=== PATIENT | male | born 1990 | race Hispanic/Latino ===

== ENCOUNTER → 2020-05-06 | Outpatient (CLI) | payer OTHER ==
--- NOTE | 2020-05-06 10:46 | Diagnostic Imaging Report ---
TECHNIQUE: Magnetic resonance imaging of the RIGHT KNEE was performed WITHOUT injected contrast. HISTORY: Right knee pain, right knee sprain COMPARISON: None available. FINDINGS: LIGAMENTS AND TENDONS: ACL: Increased signal with questionable fiber irregularity near the femoral attachment, may represent sprain versus low-grade partial tear. PCL: Intact Collateral ligaments: Intact Iliotibial band: Unremarkable Popliteal tendon: Intact Extensor mechanism: Intact Mild increased signal along the semimembranosus myotendinous junction. Distal tendon remains intact. JOINT: Menisci: Medial: Bucket-handle tear of the medial meniscus with large fragment flipped into the intercondylar notch. Lateral: Intact Articular Cartilage: Medial Compartment: No focal defect. Lateral Compartment: No focal defect. Patellofemoral Compartment: No focal defect. Joint Fluid: Moderate joint effusion. BONE: No focal or infiltrative bone marrow replacing abnormality. No acute fracture. SOFT TISSUES: Mild diffuse subcutaneous edema. IMPRESSION: 1. Bucket-handle tear of the medial meniscus with large fragment flipped into the intercondylar notch. 2. Increased signal in the ACL with questionable fiber irregularity near the femoral attachment, may represent ACL sprain versus low-grade partial tear. 3. Low-grade strain at the semitendinosus myotendinous junction. 4. Moderate joint effusion. Signed by: Dr. Aly Bowling M.D. on 05/06/2020 10:43 AM
== END ==
LOC: MRI 08:26
PROVIDERS: ATTEND Family Medicine
DX: S83.91XA Sprain of unspecified site of right knee, initial encounter (principal)